=== PATIENT | female | born 2000 | race Caucasian/White ===

== ENCOUNTER → 2022-05-01 | Outpatient (CLI) | payer OTHER ==
[2022-05-03 08:55] LABS: Candida species (DNA Probe) Positive (NEGATIVE); G. vaginalis (DNA Probe) Negative (NEGATIVE); T. vaginalis (DNA Probe) Negative (NEGATIVE)
== END | disposition home or self-care (01) ==
LOC: LAB 15:33 → LAB SHORT 15:33
PROVIDERS: Nurse Practitioner Family
DX: Z72.51 High risk heterosexual behavior (principal)
CPT/HCPCS: 87480; 87510; 87660

== ENCOUNTER → 2023-03-26 | Outpatient (CLI) | payer OTHER ==
[2023-03-26 19:08] LABS: BASOPHILS ABSOLUTE AUTO 0.05 K/mm3 (0.00-0.23); BASOPHILS PERCENT AUTO 1 % (0-2); EOSINOPHILS ABSOLUTE AUTO 0.03 K/mm3 (0.00-0.68); EOSINOPHILS PERCENT AUTO 0 % (0-6); Hematocrit 39.4 % (33.0-51.0); Hemoglobin 13.3 g/dL (11.5-16.0); IMMATURE GRAN ABSOLUTE AUTO 0.02 K/mm3 (0.00-0.10); IMMATURE GRAN PERCENT AUTO 0 % (0-1); LYMPHOCYTES ABSOLUTE AUTO 1.93 K/mm3 (0.84-5.20); LYMPHOCYTES PERCENT AUTO 29 % (21-46); MONOCYTES PERCENT AUTO 6 % (4-13); Mean Corpuscular HGB 30.4 pg (26.0-34.0); Mean Corpuscular HGB Conc 33.8 g/dL (31.5-36.5); Mean Corpuscular Volume 90 fL (80-100); Mean Platelet Volume 10.1 fL (9.1-12.4); NEUTROPHILS PERCENT AUTO 64 % (41-73); Platelet Count 235 K/mm3 (150-400); RDW Coefficient Variation 12.7 % (11.7-14.2); RDW Standard Deviation 42.1 fL (35.1-46.3); Red Blood Cell Count 4.37 M/mm3 (3.80-5.20); White Blood Cell Count 6.73 K/mm3 (4.00-11.30)
[2023-03-26 19:49] LABS: Thyroid Stimulating Hormone 0.673 uIU/mL (0.360-4.800)
[2023-03-28 09:11] LABS: A/G RATIO 2.3 (1.2-2.2); BILIRUBIN, TOTAL 0.9 mg/dL (0.0-1.2); CALCIUM, SERUM 9.2 mg/dL (8.7-10.2); CREATININE, SERUM 0.92 mg/dL (0.57-1.00); POTASSIUM, SERUM 4.1 mmol/L (3.5-5.2); PROTEIN, TOTAL, SERUM 6.6 g/dL (6.0-8.5)
== END ==
LOC: LAB 17:26 → LAB SHORT 17:26
DX: D50.9 Iron deficiency anemia, unspecified (principal); R53.83 Other fatigue
CPT/HCPCS: 80053; 82728; 84443; 85025

== ENCOUNTER → 2023-03-28 | Outpatient (CLI) | payer OTHER ==
[2023-03-29 15:09] LABS: Adenovirus F 40/41 Not Detected (NOT DETECT); Astrovirus Not Detected (NOT DETECT); Campylobacter Sp Not Detected (NOT DETECT); Cryptosporidium Not Detected (NOT DETECT); Cyclospora Cayetanensis Not Detected (NOT DETECT); E. Coli O157 Not Detected (NOT DETECT); Entamoeba Histolytica Not Detected (NOT DETECT); Enteroaggregative E. coli-EAEC Not Detected (NOT DETECT); Enteropathogenic E. coli-EPEC Not Detected (NOT DETECT); Enterotoxigenic E. coli-ETEC Not Detected (NOT DETECT); Giardia Lamblia Not Detected (NOT DETECT); Norovirus GI/GII Not Detected (NOT DETECT); Plesiomonas Shigelloides Not Detected (NOT DETECT); Rotavirus A Not Detected (NOT DETECT); Salmonella Sp Not Detected (NOT DETECT); Sapovirus Not Detected (NOT DETECT); Shiga Toxin-prod E. coli-STEC Not Detected (NOT DETECT); Shigella/Enteroin E. coli-EIEC Not Detected (NOT DETECT); Vibrio Cholerae Not Detected (NOT DETECT); Vibrio Sp Not Detected (NOT DETECT); Yersinia Enterocolitica Not Detected (NOT DETECT)
== END ==
LOC: LAB SHORT 18:30
DX: R19.7 Diarrhea, unspecified (principal)
CPT/HCPCS: 87338; 87507

== ENCOUNTER → 2023-09-17 | Outpatient (CLI) | payer BC | LOC: LAB SHORT 11:43 → LAB 11:43 | DX: J35.8 Other chronic diseases of tonsils and adenoids (principal); H66.92 Otitis media, unspecified, left ear | CPT/HCPCS: 87081 ==

== ENCOUNTER 2024-01-06 17:23 | Emergency (ER) | payer OTHER, BC ==
[~2024-01-06] VITALS: Ht 162.6 cm; Wt 72.6 kg
== END 2024-01-06 17:37 | disposition home or self-care (01) ==
LOC: ER 17:23
DX: S80.12XA Contusion of left lower leg, initial encounter (principal); V86.55XA Driver of 3- or 4- wheeled all-terrain vehicle (ATV) injured in nontraffic accident, initial encounter
CPT/HCPCS: 99283

== ENCOUNTER → 2024-03-13 | Outpatient (CLI) | payer BC ==
[2024-03-13 20:17] LABS: BASOPHILS ABSOLUTE AUTO 0.06 K/mm3 (0.00-0.23); BASOPHILS PERCENT AUTO 1 % (0-2); EOSINOPHILS ABSOLUTE AUTO 0.06 K/mm3 (0.00-0.68); EOSINOPHILS PERCENT AUTO 1 % (0-6); Hematocrit 38.2 % (33.0-51.0); Hemoglobin 13.1 g/dL (11.5-16.0); IMMATURE GRAN ABSOLUTE AUTO 0.02 K/mm3 (0.00-0.10); IMMATURE GRAN PERCENT AUTO 0 % (0-1); LYMPHOCYTES ABSOLUTE AUTO 2.36 K/mm3 (0.84-5.20); LYMPHOCYTES PERCENT AUTO 30 % (21-46); MONOCYTES ABSOLUTE AUTO 0.44 K/mm3 (0.16-1.47); MONOCYTES PERCENT AUTO 6 % (4-13); Mean Corpuscular HGB 31.3 pg (26.0-34.0); Mean Corpuscular HGB Conc 34.3 g/dL (31.5-36.5); Mean Corpuscular Volume 91 fL (80-100); NEUTROPHILS ABSOLUTE AUTO 5.05 K/mm3 (1.96-9.15); NEUTROPHILS PERCENT AUTO 63 % (41-73); Platelet Count 257 K/mm3 (150-400); RDW Coefficient Variation 12.6 % (11.7-14.2); RDW Standard Deviation 41.6 fL (35.1-46.3); Red Blood Cell Count 4.19 M/mm3 (3.80-5.20); White Blood Cell Count 7.99 K/mm3 (4.00-11.30)
[2024-03-13 20:24] LABS: Lithium <0.20 mmol/L (0.60-1.20)
[2024-03-13 20:25] LABS: Albumin, Blood 3.8 g/dL (3.4-5.0); Albumin/Globulin Ratio 1.4 (0.8-1.8); Bilirubin, Total 1.1 mg/dL (0.1-1.0); Bun/Creatinine Ratio 18.7 (12.0-20.0); Calcium, Blood 9.2 mg/dL (8.5-10.1); Creatinine, Blood 0.91 mg/dL (0.40-1.00); Globulin, Blood 2.8 g/dL (2.2-4.0); Potassium, Blood 3.6 mmol/L (3.5-5.5); Thyroid Stimulating Hormone 0.877 uIU/mL (0.360-4.800); Total Protein, Blood 6.6 g/dL (6.4-8.2)
== END ==
LOC: LAB 19:34 → LAB SHORT 19:34
PROVIDERS: Student in an Organized Health Care Education/Training Program
DX: F31.81 Bipolar II disorder (principal)
CPT/HCPCS: 80053; 80178; 84443; 85025

== ENCOUNTER → 2024-05-26 | Outpatient (CLI) | payer BC ==
[2024-05-26 13:29] LABS: Bacterial Vaginosis PCR Negative (NEGATIVE); Candida Group, PCR NOT DETECTED (NOT DETECT); Candida glabrata-krusei, PCR NOT DETECTED (NOT DETECT)
[2024-05-27 16:09] LABS: HEPATITIS A ANTIBODY, IGM Negative (Negative); HEPATITIS B CORE ANTIBODY, IGM Negative (Negative); HEPATITIS B SURFACE ANTIGEN Negative (Negative); HEPATITIS C AB CIA INTERP Negative (Negative); HEPATITIS C ANTIBODY CIA INDEX <0.02 IV
[2024-05-27 17:20] LABS: HIV 1,2 COMBO ANTIGEN/ANTIBODY Negative (Negative)
[2024-05-27 23:23] LABS: APTIMA MEDIA TYPE MultiTest Swab; C. TRACHOMATIS BY TMA Negative (Negative); N. GONORRHOEAE BY TMA Negative (Negative); SPECIMEN SOURCE Vaginal
[2024-05-28 10:49] LABS: HSV 1 GLYCOPROTEIN G AB, IGG <0.01 IV (<=0.89); HSV 2 GLYCOPROTEIN G AB, IGG 0.03 IV (<=0.89)
== END ==
LOC: LAB 11:24 → LAB SHORT 11:24
PROVIDERS: General Practice
DX: N89.8 Other specified noninflammatory disorders of vagina (principal); Z20.2 Contact with and (suspected) exposure to infections with a predominantly sexual mode of transmission
CPT/HCPCS: 80074; 81515; 86592; 86695; 86696; 87389; 87491; 87591

== ENCOUNTER → 2024-09-14 | Outpatient (CLI) | payer BC | LOC: LAB 07:45 → LAB SHORT 07:45 | PROVIDERS: General Practice | DX: R79.89 Other specified abnormal findings of blood chemistry (principal) | CPT/HCPCS: 84439; 84481 ==

== ENCOUNTER 2024-10-01 10:19 | Emergency (ER) | payer BC ==
[~2024-10-01] VITALS: Ht 162.6 cm; Wt 62.6 kg
[2024-10-01 10:51] LABS: BASOPHILS ABSOLUTE AUTO 0.04 K/mm3 (0.00-0.23); BASOPHILS PERCENT AUTO 1 % (0-2); EOSINOPHILS ABSOLUTE AUTO 0.04 K/mm3 (0.00-0.68); EOSINOPHILS PERCENT AUTO 1 % (0-6); Hematocrit 40.9 % (33.0-51.0); Hemoglobin 13.6 g/dL (11.5-16.0); IMMATURE GRAN ABSOLUTE AUTO 0.01 K/mm3 (0.00-0.10); IMMATURE GRAN PERCENT AUTO 0 % (0-1); LYMPHOCYTES ABSOLUTE AUTO 2.06 K/mm3 (0.84-5.20); LYMPHOCYTES PERCENT AUTO 31 % (21-46); MONOCYTES ABSOLUTE AUTO 0.28 K/mm3 (0.16-1.47); MONOCYTES PERCENT AUTO 4 % (4-13); Mean Corpuscular HGB Conc 33.3 g/dL (31.5-36.5); Mean Corpuscular Volume 92 fL (80-100); NEUTROPHILS ABSOLUTE AUTO 4.16 K/mm3 (1.96-9.15); NEUTROPHILS PERCENT AUTO 63 % (41-73); NRBC ABSOLUTE 0.00 K/mm3 (0.00-0.02); NRBC Auto 0.0 /100 WBC (0.0-0.2); Platelet Count 221 K/mm3 (150-400); RDW Coefficient Variation 12.3 % (11.7-14.2); RDW Standard Deviation 41.6 fL (35.1-46.3)
[2024-10-01 11:10] LABS: Alanine Aminotransfer (ALT/SGP 30.0 U/L (12-78); Albumin, Blood 3.8 g/dL (3.4-5.0); Albumin/Globulin Ratio 1.1 (0.8-1.8); Anion Gap 7.0 mmol/L (3-11); Aspartate Aminotrans (AST/SGOT 18.0 U/L (12-37); Bilirubin, Total 1.5 mg/dL (0.1-1.0); Blood Urea Nitrogen 10.0 mg/dL (8-24); CO2, Blood 27.0 mmol/L (21-32); Calcium, Blood 8.4 mg/dL (8.5-10.1); Chloride, Blood 108.0 mmol/L (98-108); Creatinine, Blood 0.88 mg/dL (0.40-1.00); Globulin, Blood 3.4 g/dL (2.2-4.0); Glucose, Blood 109.0 mg/dL (70-99); Potassium, Blood 3.6 mmol/L (3.5-5.5); Sodium, Blood 138.0 mmol/L (136-145); Total Protein, Blood 7.2 g/dL (6.4-8.2)
[2024-10-01] MEDS ORDERED: Ketorolac Tromethamine 15mg Vial IV ONE ×2 (12:15→12:35)
[2024-10-01 13:56] VITALS: BP 106/68
[2024-10-01] MEDS ORDERED: TRANSDERM-SCOP1 EA13 TD (14:06)
[2024-10-01] MEDS ORDERED: MECL25 PO (14:06)
== END 2024-10-01 14:12 | disposition home or self-care (01) ==
LOC: ER 10:19
PROVIDERS: Physician Assistant
DX: R42 Dizziness and giddiness (principal); R07.89 Other chest pain; R00.2 Palpitations; Z59.89 Other problems related to housing and economic circumstances
CPT/HCPCS: 71046; 80053; 85025; 93005; 93010; 96374; 99285-25; A9270; J1885

== ENCOUNTER → 2024-10-11 | Outpatient (CLI) | payer BC ==
[~2024-10-11] MED LIST: MECL25 PO; TRANSDERM-SCOP1 EA13 TD
== END | disposition home or self-care (01) ==
LOC: LAB SHORT 12:53 → LAB 12:53
DX: J02.9 Acute pharyngitis, unspecified (principal)
CPT/HCPCS: 87081

== ENCOUNTER 2024-12-13 05:43 | Emergency (ER) | payer BC ==
[~2024-12-13] VITALS: Ht 162.6 cm; Wt 62.1 kg
[2024-12-13] MEDS ORDERED: NS 1,000 ML IV SCH (06:25)
[2024-12-13] MEDS ORDERED: Morphine Sulfate 4 MG/1 ML Injection IV ONE (06:25)
[2024-12-13] MEDS ORDERED: Ondansetron HCl 2 MG / ML 2ML Vial IV ONE (06:25)
[2024-12-13 06:45] VITALS: BP 91/60
[2024-12-13 06:53] LABS: BASOPHILS ABSOLUTE AUTO 0.04 K/mm3 (0.00-0.23); BASOPHILS PERCENT AUTO 1 % (0-2); EOSINOPHILS ABSOLUTE AUTO 0.04 K/mm3 (0.00-0.68); EOSINOPHILS PERCENT AUTO 1 % (0-6); Hematocrit 35.2 % (33.0-51.0); Hemoglobin 12.1 g/dL (11.5-16.0); IMMATURE GRAN ABSOLUTE AUTO 0.01 K/mm3 (0.00-0.10); IMMATURE GRAN PERCENT AUTO 0 % (0-1); LYMPHOCYTES ABSOLUTE AUTO 1.64 K/mm3 (0.84-5.20); LYMPHOCYTES PERCENT AUTO 20 % (21-46); MONOCYTES ABSOLUTE AUTO 0.43 K/mm3 (0.16-1.47); MONOCYTES PERCENT AUTO 5 % (4-13); Mean Corpuscular HGB Conc 34.4 g/dL (31.5-36.5); Mean Corpuscular Volume 90 fL (80-100); NEUTROPHILS ABSOLUTE AUTO 6.26 K/mm3 (1.96-9.15); NEUTROPHILS PERCENT AUTO 74 % (41-73); NRBC ABSOLUTE 0.00 K/mm3 (0.00-0.02); NRBC Auto 0.0 /100 WBC (0.0-0.2); Platelet Count 209 K/mm3 (150-400); RDW Coefficient Variation 12.8 % (11.7-14.2); RDW Standard Deviation 42.1 fL (35.1-46.3)
[2024-12-13 07:04] LABS: Source, Urine Clean Catch
[2024-12-13 07:08] LABS: Bilirubin, Urine Neg (Neg); Color, Urine Yellow (P-Yellow); Glucose Qualitative, Urine Neg (Neg); Ketones, Urine Neg (Neg); Leukocyte Esterase, Urine Neg (Neg); Protein, Urine 1+ (Neg); Specific Gravity, Urine 1.015 (1.003-1.022); Urobilinogen, Urine NORM (Normal)
[2024-12-13 07:13] LABS: Alanine Aminotransfer (ALT/SGP 18.0 U/L (12-78); Albumin, Blood 3.7 g/dL (3.4-5.0); Albumin/Globulin Ratio 1.5 (0.8-1.8); Anion Gap 10.0 mmol/L (3-11); Aspartate Aminotrans (AST/SGOT 10.0 U/L (12-37); Bilirubin, Total 1.1 mg/dL (0.1-1.0); Blood Urea Nitrogen 9.0 mg/dL (8-24); CO2, Blood 21.0 mmol/L (21-32); Calcium, Blood 8.3 mg/dL (8.5-10.1); Chloride, Blood 110.0 mmol/L (98-108); Creatinine, Blood 0.89 mg/dL (0.40-1.00); Globulin, Blood 2.5 g/dL (2.2-4.0); Glucose, Blood 93.0 mg/dL (70-99); Potassium, Blood 3.3 mmol/L (3.5-5.5); Sodium, Blood 138.0 mmol/L (136-145); Total Protein, Blood 6.2 g/dL (6.4-8.2)
[2024-12-13 07:23] LABS: Red Blood Cells, Urine 0-2 /hpf (0-2); White Blood Cells, Urine 0-2 /hpf (0-5)
== END 2024-12-13 07:51 | disposition home or self-care (01) ==
LOC: ER 05:43
PROVIDERS: Student in an Organized Health Care Education/Training Program
DX: R10.30 Lower abdominal pain, unspecified (principal); E87.6 Hypokalemia; Z79.899 Other long term (current) drug therapy
CPT/HCPCS: 80053; 81001; 81025; 83690; 85025; 96361; 96374; 99284-25; J2270; J2405; J7030

== ENCOUNTER 2025-01-04 12:39 | Day surgery (SDC) | payer BC ==
[~2025-01-04] VITALS: Ht 162.6 cm; Wt 61.8 kg
[2025-01-04] MEDS ORDERED: MIDODRINE HCL10 M1 PO (13:09)
[2025-01-04] MEDS ORDERED: Tranexamic Acid 100 ML IV ONE (13:39)
[2025-01-04] MEDS ORDERED: Midazolam HCl 1MG / ML 2ML Vial ONE (13:39)
[2025-01-04] MEDS ORDERED: FentaNYL Citrate 50 MCG/ML 2 ML Injection ONE ×2 (13:47→15:09)
[2025-01-04] MEDS ORDERED: Sugammadex Sodium 200 MG/2ML SDV (100 MG/ML) ONE (13:47)
[2025-01-04] MEDS ORDERED: Rocuronium Bromide 10 MG/ML 5ML Injection IV ONE (13:48)
[2025-01-04] MEDS ORDERED: Ondansetron HCl 2 MG / ML 2ML Vial ONE ×2 (13:48→15:02)
[2025-01-04] MEDS ORDERED: Dexamethasone Sod Phos 10 MG/ML 1ML VIAL ONE (13:48)
[2025-01-04] MEDS ORDERED: Bupivacaine 0.5% W/EPI 1:200000 SDV 30 ML Vial ONE (14:09)
[2025-01-04] MEDS ORDERED: Labetalol HCL 5 MG/ML 4ML Injection (Single Dose) ONE (14:28)
[2025-01-04 16:01] VITALS: BP 104/67
--- NOTE | 2025-01-04 16:03 | NUR ---
01/04/25 Ayanna Levin PT RECEIVED 100MCG OF FENTANYL GIVEN SLOWLY OVER 5 MIN INTERVALS. PT'S MOM AND FRIEND AT SIDE OF RECLINER. PT ABLE TO VERBALIZE NEEDS. PT ABLE TO TOLERATE FLUIDS AND POPSICLE. ALL QUESTIONS ANSWERED AND CONCERNS ADDRESSED.
== END 2025-01-04 16:09 | disposition home or self-care (01) ==
LOC: ORSCSDS 12:39
PROVIDERS: Otolaryngology
PROC: 0CBPXZZ Excision of Tonsils, External Approach (ICD-10-PCS; principal; 2025-01-04 14:15)
DX: J35.01 Chronic tonsillitis (principal); J35.8 Other chronic diseases of tonsils and adenoids
CPT/HCPCS: 88304; J1100; J2250; J2405; J2704; J3010; J7120

== ENCOUNTER → 2025-02-12 | Outpatient (CLI) | payer BC ==
[~2025-02-12] MED LIST changes: +MIDODRINE HCL10 M1 PO
[2025-02-12 11:40] LABS: Alanine Aminotransfer (ALT/SGP 17.0 U/L (12-78); Albumin, Blood 3.9 g/dL (3.4-5.0); Albumin/Globulin Ratio 1.3 (0.8-1.8); Anion Gap 8.0 mmol/L (3-11); Aspartate Aminotrans (AST/SGOT 12.0 U/L (12-37); Bilirubin, Total 1.3 mg/dL (0.1-1.0); Blood Urea Nitrogen 15.0 mg/dL (8-24); CO2, Blood 27.0 mmol/L (21-32); Calcium, Blood 9.0 mg/dL (8.5-10.1); Chloride, Blood 108.0 mmol/L (98-108); Creatinine, Blood 0.95 mg/dL (0.40-1.00); Globulin, Blood 3.1 g/dL (2.2-4.0); Glucose, Blood 83.0 mg/dL (70-99); Potassium, Blood 3.9 mmol/L (3.5-5.5); Sodium, Blood 139.0 mmol/L (136-145); Total Protein, Blood 7.0 g/dL (6.4-8.2)
== END ==
LOC: LAB 08:15 → LAB SHORT 08:15
PROVIDERS: General Practice
DX: E87.6 Hypokalemia (principal)
CPT/HCPCS: 80053